=== PATIENT | female | born 1975 | race Two or more races ===

== ENCOUNTER 2021-04-04 04:22 | Emergency (ER) | payer OTHER ==
[~2021-04-04] VITALS: Ht 152.4 cm; Wt 59.9 kg
[2021-04-04] MEDS ORDERED: HUMALOG100 UNIT/2 SUBCUTANEO (04:30)
[2021-04-04] MEDS ORDERED: LANTUS SOL100 UNIT/1 SQ (04:30)
[2021-04-04] MEDS ORDERED: ISOSORBIDE DINI30 MG PO (04:31)
[2021-04-04] MEDS ORDERED: PLAVIX75 MG PO (04:31)
[2021-04-04] MEDS ORDERED: LASIX20 MG PO (04:31)
[2021-04-04] MEDS ORDERED: CARVEDILOL25 MG PO (04:32)
[2021-04-04] MEDS ORDERED: FOLIC ACID20 MG PO (04:32)
[2021-04-04] MEDS ORDERED: COZAAR100 MG PO (04:32)
[2021-04-04] MEDS ORDERED: CEPHALEXIN500 MG PO (08:12)
[2021-04-04] MEDS ORDERED: PROTONIX40 MG PO (08:12)
[2021-04-04] MEDS ORDERED: PEPCID40 MG PO (08:12)
[2021-04-04] MEDS ORDERED: PYRIDIUM DS200 MG PO (08:12)
== END 2021-04-04 08:32 ==
LOC: ER 04:22
DX: K29.60 Other gastritis without bleeding (principal); N39.0 Urinary tract infection, site not specified